=== PATIENT | male | born 1945 | race Caucasian/White ===

== ENCOUNTER 2016-07-29 00:35 | Emergency (ER) | payer MEDICARE ==
--- NOTE | ~2016-07-29 | ER ---
PATIENT'S NAME: DESIREE CHEN [facility] AGE: 70 Y [address] ROOM: [place] [id number] LOCATION: [facility] ADMIT DATE: 07/29/2016 ER/Outpatient Report DISCHARGE DATE: 07/29/2016 FAMILY PHYSICIAN: Damon Luke APRN ATTENDING PHYSICIAN: Pan Mena TIME OF ADMIT: 0037 hours. TIME SEEN: 0045 hours. HISTORY OF PRESENT ILLNESS: This is a 70-year-old male, history of COPD. He is in with complaint of a flare-up of his asthma and he did not bring his inhaler because he rushed to the hospital because his son was involved in an accident tonight. PAST MEDICAL HISTORY: Significant for asthma/COPD. CURRENT MEDICATIONS: Include an albuterol inhaler and albuterol nebulizer, which he uses on a daily basis. REVIEW OF SYSTEMS: He had a recent episode of bronchitis. He states he finished a course of steroids and antibiotics about 4 days ago. PHYSICAL EXAMINATION: GENERAL: Alert and cooperative male, in no acute distress. VITAL SIGNS: Stable. SKIN: Warm and dry. Color is normal. HEAD, EARS, EYES, NOSE, AND THROAT: Normal. NECK: Supple. HEART: Regular rate and rhythm without murmur. LUNGS: He had scattered inspiratory and expiratory wheezes bilaterally. ABDOMEN: Soft. EXTREMITIES: Normal. NEUROLOGIC: Normal. EMERGENCY DEPARTMENT COURSE: He was given a DuoNeb inhaler with marked improvement. ASSESSMENT: Asthma exacerbation. PATIENT'S NAME: DESIREE CHEN [facility] AGE: 70 Y [address] ROOM: [place] [id number] LOCATION: [facility] ADMIT DATE: 07/29/2016 ER/Outpatient Report DISCHARGE DATE: 07/29/2016 FAMILY PHYSICIAN: Damon Luke APRN ATTENDING PHYSICIAN: Pan Mena PLAN: He was given an albuterol metered-dose inhaler and instructed to follow up with his regular doctor as needed and continue his current home medications. MD FRACISCO HAND/stacy /[id number] d: 07/29/16 0615 t: 09/03/16 0455, OUTPATIENT REPORT
--- NOTE | ~2016-07-29 | ER ---
PATIENT'S NAME: DESIREE CHEN [facility] AGE: 70 Y [address] ROOM: [place] [address] LOCATION: [facility] ADMIT DATE: 07/29/2016 ER/Outpatient Report DISCHARGE DATE: 07/29/2016 FAMILY PHYSICIAN: Damon Luke APRN ATTENDING PHYSICIAN: Pan Mena TIME OF ADMIT: 0037 hours. TIME SEEN: 0045 hours. HISTORY OF PRESENT ILLNESS: This is a 70-year-old male, history of COPD. He is in with complaint of a flare-up of his asthma and he did not bring his inhaler because he rushed to the hospital because his son was involved in an accident tonight. PAST MEDICAL HISTORY: Significant for asthma/COPD. CURRENT MEDICATIONS: Include an albuterol inhaler and albuterol nebulizer, which he uses on a daily basis. REVIEW OF SYSTEMS: He had a recent episode of bronchitis. He states he finished a course of steroids and antibiotics about 4 days ago. PHYSICAL EXAMINATION: GENERAL: Alert and cooperative male, in no acute distress. VITAL SIGNS: Stable. SKIN: Warm and dry. Color is normal. HEAD, EARS, EYES, NOSE, AND THROAT: Normal. NECK: Supple. HEART: Regular rate and rhythm without murmur. LUNGS: He had scattered inspiratory and expiratory wheezes bilaterally. ABDOMEN: Soft. EXTREMITIES: Normal. NEUROLOGIC: Normal. EMERGENCY DEPARTMENT COURSE: He was given a DuoNeb inhaler with marked improvement. ASSESSMENT: Asthma exacerbation. PATIENT'S NAME: DESIREE CHEN [facility] AGE: 70 Y [address] ROOM: [place] [address] LOCATION: [facility] ADMIT DATE: 07/29/2016 ER/Outpatient Report DISCHARGE DATE: 07/29/2016 FAMILY PHYSICIAN: Damon Luke APRN ATTENDING PHYSICIAN: Pan Mena PLAN: He was given an albuterol metered-dose inhaler and instructed to follow up with his regular doctor as needed and continue his current home medications. MD FRACISCO HAND/stacy /[id number] d: t: 07/31/16 1039, OUTPATIENT REPORT
== END 2016-07-29 01:16 | disposition disaster alternative care site (69) ==
LOC: GMED 00:35
DX: J45.901 Unspecified asthma with (acute) exacerbation (principal); J44.9 Chronic obstructive pulmonary disease, unspecified; Z79.82 Long term (current) use of aspirin; Z88.5 Allergy status to narcotic agent; Z79.899 Other long term (current) drug therapy
CPT/HCPCS: J2250; J3010